=== PATIENT | male | born 1965 | race Caucasian/White ===

== ENCOUNTER 2018-01-27 16:47 | Emergency (ER) | payer OTHER ==
--- NOTE | 2018-01-27 17:51 | EDPHYS ---
Physician Documentation [facility] Name: Ankit Reyes Jr Age: 52 yrs Sex: Male : 1965 Arrival Date: 01/27/2018 Time: 16:49 Bed 14 Private MD: Alex Frankel HPI: 01/27 17:28 This 52 yrs old Male presents to ER via Ambulatory with complaints of cp BLISTERS. 17:28 The patient's rash thought to be caused by an unknown cause. The rash is located on the cp right hand and left hand. Historical: - Allergies: 17:00 No Known Allergies; hb - Home Meds: 17:00 Lisinopril Oral [Active]; hb - PMHx: 17:00 Hyperlipidemia; Hypertension; hb - PSHx: 17:00 ear surgery when young; hb - Immunization history:: Adult Immunizations up to date. - Social history:: Smoking status: Patient uses tobacco products, smokes one pack cigarettes per day. - Ebola Screening: : No symptoms or risks identified at this time. ROS: 17:30 Constitutional: Negative for body aches, chills, fever, poor PO intake. cp 17:30 Eyes: Negative for injury, pain, redness, and discharge. cp 17:30 Skin: Positive for pustules, rash, of the right hand and left hand. 17:30 All other systems are negative. Exam: 17:38 Constitutional: The patient appears in no acute distress, alert, awake, non-toxic, well cp developed, well nourished. 17:38 Head/Face: Normocephalic, atraumatic. cp 17:38 Eyes: Periorbital structures: appear normal, Conjunctiva: normal, no exudate, no injection, Lids and lashes: appear normal, bilaterally. 17:38 ENT: External ear(s): are unremarkable, Nose: is normal, Mouth: Lips: moist, Oral mucosa: pink and intact, moist, Posterior pharynx: is normal, airway is patent, no erythema, no exudate, Voice: is normal. 17:38 Neck: ROM/movement: is normal, is supple, without pain, no range of motions limitations, no nuchal rigidity. 17:38 Chest/axilla: Inspection: normal. 17:38 Cardiovascular: Rate: normal, Rhythm: regular, Pulses: Pulses are 2+ in right radial artery and left radial artery. 17:38 Respiratory: the patient does not display signs of respiratory distress, Respirations: normal, no use of accessory muscles, no retractions, no splinting, no tachypnea. 17:38 Abdomen/GI: Exam negative for discomfort, distension, guarding, Inspection: abdomen appears normal. 17:38 Skin: rash can be described as bullous, mild skin ulcerations with mild erythema, on the right hand and left hand. Vital Signs: 16:59 BP 131 / 91; Pulse 88; Resp 16; Temp 97.4; Pulse Ox 100% on R/A; Weight 70.31 kg; hb Height 5 ft. 8 in. (172.72 cm); Pain 2/10; 19:05 BP 127 / 90; Pulse 92; Resp 18; Pulse Ox 100% ; aj1 16:59 Body Mass Index 23.57 (70.31 kg, 172.72 cm) hb MDM: 17:14 Patient medically screened. cp 17:40 Differential diagnosis: allergic reaction, dermatitis, cellulitis, abscess. cp 17:47 Data reviewed: vital signs, nurses notes. cp 17:48 Counseling: I had a detailed discussion with the patient and/or guardian regarding: the cp historical points, exam findings, and any diagnostic results supporting the discharge/admit diagnosis, the need for outpatient follow up, a ob gyn, to return to the emergency department if symptoms worsen or persist or if there are any questions or concerns that arise at home. 01/27 17:31 Order name: Wound Culture: either hand cp Administered Medications: No medications were administered Disposition: 01/28 09:07 Co-signature as Attending Physician, Alex Lynch MD I agree with the assessment and dimitris plan of care. Disposition: 01/27/18 17:49 Discharged to Home. Impression: Dermatitis, unspecified - Bilateral Hands. - Condition is Stable. - Discharge Instructions: Hand Dermatitis. - Prescriptions for Triamcinolone Acetonide 0.5 % Topical Cream - apply 1 application by TOPICAL route 2 times per day As needed apply as directed to bilateral hands until clear; 1 tube. Bactrim DS 800- 160 mg Oral Tablet - take 1 tablet by ORAL route every 12 hours for 10 days; 20 tablet. - Medication Reconciliation Form, Thank You Letter, Antibiotic Education, Prescription Opioid Use form. - Follow up: Private Physician; When: 5 - 6 days; Reason: Recheck today's complaints. - Problem is new. - Symptoms are unchanged. Signatures: Dispatcher [employer] Claire Mratini RN RN aj1 Alex Lynch MD MD cha Page, Corey, PA PA cp Noy Elizabeth RN RN Corrections: (The following items were deleted from the chart) 01/27 19:06 17:49 01/27/2018 17:49 Discharged to Home. Impression: Dermatitis, unspecified - aj1 Bilateral Hands. Condition is Stable. Forms are Medication Reconciliation Form, Thank You Letter, Antibiotic Education, Prescription Opioid Use. Follow up: Private Physician; When: 5 - 6 days; Reason: Recheck today's complaints. Problem is new. Symptoms are unchanged. cp
--- NOTE | 2018-01-27 17:51 | ER ---
Nurse's Notes [facility] Name: Ankit Reyes Jr Age: 52 yrs Sex: Male : 1965 Arrival Date: 01/27/2018 Time: 16:49 Bed 14 Private MD: Diagnosis: Dermatitis, unspecified-Bilateral Hands Presentation: 01/27 16:59 Presenting complaint: Patient states: Itchy blisters to bilateral hands x 2 weeks. hb Transition of care: patient was not received from another setting of care. Onset of symptoms is unknown. Risk Assessment: Do you want to hurt yourself or someone else? Patient reports no desire to harm self or others. Initial Sepsis Screen: Does the patient meet any 2 criteria? No. Patient's initial sepsis screen is negative. Does the patient have a suspected source of infection? No. Patient's initial sepsis screen is negative. Care prior to arrival: None. 16:59 Method Of Arrival: Ambulatory 16:59 Acuity: BRITTON 4 hb Historical: - Allergies: 17:00 No Known Allergies; hb - Home Meds: 17:00 Lisinopril Oral [Active]; hb - PMHx: 17:00 Hyperlipidemia; Hypertension; hb - PSHx: 17:00 ear surgery when young; hb - Immunization history:: Adult Immunizations up to date. - Social history:: Smoking status: Patient uses tobacco products, smokes one pack cigarettes per day. - Ebola Screening: : No symptoms or risks identified at this time. Screenin:07 Abuse screen: Denies threats or abuse. Denies injuries from another. Nutritional aj1 screening: No deficits noted. Tuberculosis screening: No symptoms or risk factors identified. 19:04 Fall Risk None identified. aj1 Assessment: 17:07 General: Appears in no apparent distress. comfortable, Behavior is calm, cooperative, aj1 appropriate for age. Pain: Complains of pain in right hand and left hand. Neuro: Level of Consciousness is awake, alert, obeys commands, Oriented to person, place, time, situation. Cardiovascular: Patient's skin is warm and dry. Respiratory: Airway is patent Respiratory effort is even, unlabored, Respiratory pattern is regular, symmetrical. GI: No signs and/or symptoms were reported involving the gastrointestinal system. : No signs and/or symptoms were reported regarding the genitourinary system. EENT: No signs and/or symptoms were reported regarding the EENT system. Derm: blistered noted to bilateral hands, patient also has multiple infected areas where he says that he popped the blisters. Musculoskeletal: No signs and/or symptoms reported regarding the musculoskeletal system. Circulation, motion, and sensation intact. 18:00 Reassessment: Patient appears in no apparent distress at this time. No changes from aj1 previously documented assessment. Patient and/or family updated on plan of care and expected duration. Pain level reassessed. Patient is alert, oriented x 3, equal unlabored respirations, skin warm/dry/pink. 19:03 Reassessment: Patient appears in no apparent distress at this time. No changes from aj1 previously documented assessment. Patient and/or family updated on plan of care and expected duration. Pain level reassessed. Patient is alert, oriented x 3, equal unlabored respirations, skin warm/dry/pink. Vital Signs: 16:59 BP 131 / 91; Pulse 88; Resp 16; Temp 97.4; Pulse Ox 100% on R/A; Weight 70.31 kg; hb Height 5 ft. 8 in. (172.72 cm); Pain 2/10; 19:05 BP 127 / 90; Pulse 92; Resp 18; Pulse Ox 100% ; aj1 16:59 Body Mass Index 23.57 (70.31 kg, 172.72 cm) hb ED Course: 16:49 Patient arrived in ED. rg4 16:59 Triage completed. hb 17:00 Arm band placed on left wrist. hb 17:07 Claire Trinh, RN is Primary Nurse. aj1 17:07 Patient has correct armband on for positive identification. Placed in gown. Bed in low aj1 position. Call light in reach. 17:07 No provider procedures requiring assistance completed. aj1 17:14 Alex Bates PA is PHCP. cp 17:14 Alex Lynch MD is Attending Physician. cp 18:35 Wound Culture: either hand Sent. ag 18:35 Wound culture swab sent to lab. ag 19:04 Patient did not have IV access during this emergency room visit. aj1 Administered Medications: No medications were administered Outcome: 17:49 Discharge ordered by MD. cp 19:05 Discharged to home ambulatory. aj1 19:05 Condition: good 19:05 Discharge instructions given to patient, Instructed on discharge instructions, follow up and referral plans. medication usage, Demonstrated understanding of instructions, follow-up care, medications, Prescriptions given X 2. 19:06 Patient left the ED. aj1 Addendum: 01/31/2018 07:16 Addendum: Culture Results: Positive wound culture. No further action required. Bacteria i w sensitive to prescribed antibiotic. Signatures: Claire Trinh, RN RN aj1 Abby Arteaga RN RN Annemarie Truong Corey, PA PA cp Baxter, Heather, RN RN Loulou Muro 4
== END 2018-01-27 19:06 | disposition home or self-care (01) ==
LOC: ER 16:47
DX: L30.9 Dermatitis, unspecified (principal); I10 Essential (primary) hypertension; E78.5 Hyperlipidemia, unspecified; F17.210 Nicotine dependence, cigarettes, uncomplicated
CPT/HCPCS: 87070; 87077; 87186; 87205; 99283

== ENCOUNTER 2019-03-29 12:47 | Inpatient (IN) | payer OTHER ==
--- OUTSIDE RECORDS SUMMARY | 2019-03-29 12:50 | XMS REPORT ---
:1965 [facility] Address [address] [place] [address] Dr. Trinh [address] [place] [id number] Care Team Providers Name Role Phone Unavailable Unavailable Unavailable Problems This patient has no known problems. Allergies, Adverse Reactions, Alerts This patient has no known allergies or adverse reactions. Medications This patient has no known medications.
[2019-03-29] MEDS ORDERED: NA CHLORIDE 0.9% 2,000 ML ONE (13:51)
--- NOTE | 2019-03-29 15:07 | RAD REPORT ---
EXAM DESCRIPTION: RAD - Chest Single View - 03/29/2019 2:45 pm CLINICAL HISTORY: COUGH Chest pain. COMPARISON: Chest Single View dated 08/09/2017 FINDINGS: Portable technique limits examination quality. The lungs are grossly clear. The heart is normal in size. No displaced fractures. IMPRESSION: No acute intrathoracic process suspected.
[2019-03-29 15:12] LABS: Absolute Lymphocytes (CBC) 2.7 K/uL (0.7-4.9); Basophils % 0.3 % (0-1.3); Hematocrit 39.9 % (39.6-49.0); Lymphocytes % 29.7 % (15.3-44.8); MPV 11.1 fL (7.6-11.3)
[2019-03-29 15:20] LABS: ALT/SGPT 30 U/L (12-78); AST/SGOT 26 U/L (15-37); Albumin 3.9 g/dL (3.4-5.0); Alkaline Phosphatase 71 U/L (45-117); BUN Blood Urea Nitrogen 63 mg/dL (7-18); Bicarbonate 19 mmol/L (21-32); Bilirubin Direct 0.1 mg/dL (0-0.2); Bilirubin Total 0.4 mg/dL (0.2-1.0); CKMB Creatine Kinase MB 1.7 ng/mL (0.3-3.6); Creatine Phosphokinase 321 U/L (39-308); Glucose Level 94 mg/dL (74-106); Magnesium 2.5 mg/dL (1.8-2.4); NT PRO-BNP 487 pg/mL (<125); Potassium 3.8 mmol/L (3.5-5.1); Protein, Total 8.5 g/dL (6.4-8.2); Sodium Level 134 mmol/L (136-145); Troponin (Emerg Dept Use Only) < 0.02 ng/mL (0.0-0.045)
[2019-03-29 15:30] LABS: Protime INR 0.96
--- NOTE | 2019-03-29 15:43 | ER ---
Nurse's Notes [facility] Name: Ankit Reyes Jr Age: 53 yrs Sex: Male : 1965 Arrival Date: 03/29/2019 Time: 12:48 Bed 20 Private MD: Diagnosis: Acute kidney failure-dehydration, HUNTER inhibitors;Hypotension;Weakness Presentation: 03/29 13:10 Presenting complaint: Patient states: has not been felling like his normal self for iw past 2-3 days, took his BP at home and was low 70/58, has had mild dizziness, works outside daily and got overheated yesterday, vomited twice, denies cough/fever. Transition of care: patient was not received from another setting of care. Onset of symptoms was March 29, 2019. Risk Assessment: Do you want to hurt yourself or someone else? Patient reports no desire to harm self or others. Initial Sepsis Screen: Does the patient meet any 2 criteria? No. Patient's initial sepsis screen is negative. Does the patient have a suspected source of infection? No. Patient's initial sepsis screen is negative. Care prior to arrival: None. 13:10 Method Of Arrival: Ambulatory iw 13:10 Acuity: BRITTON 3 iw Historical: - Allergies: 13:15 No Known Allergies; iw - Home Meds: 13:14 lisinopril 12.5 mg Oral 2 tabs once daily [Active]; iw - PMHx: 13:14 Hyperlipidemia; Hypertension; iw - PSHx: 13:14 ear surgery when young; iw - Immunization history:: Adult Immunizations up to date. - Social history:: Smoking status: Patient/guardian denies using. - Ebola Screening: : Patient negative for fever greater than or equal to 101.5 degrees Fahrenheit, and additional compatible Ebola Virus Disease symptoms Patient denies exposure to infectious person. - Family history:: not pertinent. Screenin:30 Abuse screen: Denies threats or abuse. Nutritional screening: No deficits noted. em Tuberculosis screening: No symptoms or risk factors identified. Fall Risk None identified. Assessment: 13:30 General: Appears in no apparent distress. comfortable, Behavior is calm, cooperative, em Denies fever. Pain: Denies pain. Neuro: Level of Consciousness is awake, alert, obeys commands, Denies weakness dizziness. Cardiovascular: Capillary refill < 3 seconds Patient's skin is warm and dry. Respiratory: Airway is patent Respiratory effort is even, unlabored, Respiratory pattern is regular, symmetrical. GI: Abdomen is flat, Patient currently denies nausea, vomiting. Derm: Skin is intact, is healthy with good turgor, Skin is pink, warm \T\ dry. Musculoskeletal: Capillary refill < 3 seconds, Range of motion: intact in all extremities. 14:30 Reassessment: Patient appears in no apparent distress at this time. Patient and/or em family updated on plan of care and expected duration. Pain level reassessed. Patient is alert, oriented x 3, equal unlabored respirations, skin warm/dry/pink. Patient denies pain at this time. 15:45 Reassessment: Patient appears in no apparent distress at this time. Patient and/or em family updated on plan of care and expected duration. Pain level reassessed. Patient is alert, oriented x 3, equal unlabored respirations, skin warm/dry/pink. 17:16 Reassessment: Patient appears in no apparent distress at this time. Patient and/or em family updated on plan of care and expected duration. Pain level reassessed. Patient is alert, oriented x 3, equal unlabored respirations, skin warm/dry/pink. Patient denies pain at this time. Vital Signs: 13:15 BP 105 / 71; Pulse 88; Resp 16; Temp 98.1(TE); Pulse Ox 98% on R/A; Weight 79.38 kg; iw Height 5 ft. 9 in. (175.26 cm); Pain 0/10; 14:15 BP 93 / 66 LA (/reg); Pulse 60; Resp 14; Temp 98.3(T); Pain 0/10; tt1 13:15 Body Mass Index 25.84 (79.38 kg, 175.26 cm) iw ED Course: 12:48 Patient arrived in ED. as 13:07 Alex Lynch MD is Attending Physician. [facility] 13:07 Marquez Hall LVN is Primary Nurse. em 13:13 Triage completed. iw 13:15 Arm band placed on. iw 13:30 Patient has correct armband on for positive identification. Placed in gown. Bed in low em position. Call light in reach. Pulse ox on. NIBP on. 14:20 Initial lab(s) drawn, by mi, sent to lab. Inserted saline lock: 20 gauge in right em antecubital area, using aseptic technique. Blood collected. 14:47 XRAY Chest (1 view) In Process Unspecified. EDMS 15:22 Notified ED physician of a critical lab result(s). creatinine 8.45. em 15:42 Kavita Almaguer MD is Hospitalizing Provider. [facility] 15:48 Tori Quintero MD is Hospitalizing Provider. dimitris 16:04 CT Stone Protocol In Process Unspecified. EDMS 16:05 Urine collected: clean catch specimen, tea colored, Amount Voided: 300mL. em 18:29 No provider procedures requiring assistance completed. Patient admitted, IV remains in iw place. Administered Medications: 14:20 Drug: NS 0.9% 1000 ml Route: IV; Rate: 1 bolus; Site: right antecubital; em 16:01 Follow up: IV Status: Completed infusion; IV Intake: 1000ml em 14:43 Drug: NS 0.9% 1000 ml Route: IV; Rate: 1 bolus; Site: right antecubital; em 16:02 Follow up: IV Status: Completed infusion; IV Intake: 1000ml em 16:31 Drug: NS 0.9% 1000 ml Route: IV; Rate: 125 ml/hr; Site: right antecubital; em 18:00 Follow up: IV Status: Infusion continued upon admission; IV Intake: 200ml em Intake: 16:01 IV: 1000ml; Total: 1000ml. em 16:02 IV: 1000ml; Total: 2000ml. em 18:00 IV: 200ml; Total: 2200ml. em Outcome: 15:43 Decision to Hospitalize by Provider. dimitris 18:29 Admitted to Tele accompanied by tech, via wheelchair, room 406, with chart, Report iw called to JAYME Barnes 18:29 Condition: good 18:29 Instructed on the need for admit. 18:30 Patient left the ED. iw Signatures: Dispatcher [employer] Alex Wolfe MD MD cha Munoz, Edgar, [employer] em Linda Joyce Irene, JAYME RN Coty Chua tt1
--- NOTE | 2019-03-29 15:44 | EDPHYS ---
Physician Documentation [facility] Name: Ankit Reyes Jr Age: 53 yrs Sex: Male : 1965 Arrival Date: 03/29/2019 Time: 12:48 Bed 20 Private MD: ED Physician Alex Lynch HPI: 03/29 13:48 This 53 yrs old Male presents to ER via Ambulatory with complaints of Blood dimitris Pressure Problem - Low, Doesn't Feel Right. 13:48 on bp meds, works in heat. Onset: The symptoms/episode began/occurred 2 day(s) ago. dimitris Severity of symptoms: At their worst the symptoms were moderate in the emergency department the symptoms are unchanged. The patient has not experienced similar symptoms in the past. Historical: - Allergies: 13:15 No Known Allergies; iw - Home Meds: 13:14 lisinopril 12.5 mg Oral 2 tabs once daily [Active]; iw - PMHx: 13:14 Hyperlipidemia; Hypertension; iw - PSHx: 13:14 ear surgery when young; iw - Immunization history:: Adult Immunizations up to date. - Social history:: Smoking status: Patient/guardian denies using. - Ebola Screening: : Patient negative for fever greater than or equal to 101.5 degrees Fahrenheit, and additional compatible Ebola Virus Disease symptoms Patient denies exposure to infectious person. - Family history:: not pertinent. ROS: 13:48 Constitutional: Negative for fever, chills, and weight loss, Eyes: Negative for injury, dimitris pain, redness, and discharge, ENT: Negative for injury, pain, and discharge, Neck: Negative for injury, pain, and swelling, Cardiovascular: Negative for chest pain, palpitations, and edema, Respiratory: Negative for shortness of breath, cough, wheezing, and pleuritic chest pain, Abdomen/GI: Negative for abdominal pain, nausea, vomiting, diarrhea, and constipation, Back: Negative for injury and pain, : Negative for injury, bleeding, discharge, and swelling, MS/Extremity: Negative for injury and deformity, Skin: Negative for injury, rash, and discoloration, Psych: Negative for depression, anxiety, suicide ideation, homicidal ideation, and hallucinations, Allergy/Immunology: Negative for hives, rash, and allergies, Endocrine: Negative for neck swelling, polydipsia, polyuria, polyphagia, and marked weight changes, Hematologic/Lymphatic: Negative for swollen nodes, abnormal bleeding, and unusual bruising. 13:48 Neuro: Positive for dizziness, weakness. Exam: 13:48 Constitutional: This is a well developed, well nourished patient who is awake, alert, dimitris and in no acute distress. Head/Face: Normocephalic, atraumatic. Eyes: Pupils equal round and reactive to light, extra-ocular motions intact. Lids and lashes normal. Conjunctiva and sclera are non-icteric and not injected. Cornea within normal limits. Periorbital areas with no swelling, redness, or edema. ENT: Nares patent. No nasal discharge, no septal abnormalities noted. Tympanic membranes are normal and external auditory canals are clear. Oropharynx with no redness, swelling, or masses, exudates, or evidence of obstruction, uvula midline. Mucous membranes moist. Neck: Trachea midline, no thyromegaly or masses palpated, and no cervical lymphadenopathy. Supple, full range of motion without nuchal rigidity, or vertebral point tenderness. No Meningismus. Chest/axilla: Normal chest wall appearance and motion. Nontender with no deformity. No lesions are appreciated. Cardiovascular: Regular rate and rhythm with a normal S1 and S2. No gallops, murmurs, or rubs. Normal PMI, no JVD. No pulse deficits. Respiratory: Lungs have equal breath sounds bilaterally, clear to auscultation and percussion. No rales, rhonchi or wheezes noted. No increased work of breathing, no retractions or nasal flaring. Abdomen/GI: Soft, non-tender, with normal bowel sounds. No distension or tympany. No guarding or rebound. No evidence of tenderness throughout. Back: No spinal tenderness. No costovertebral tenderness. Full range of motion. Skin: Warm, dry with normal turgor. Normal color with no rashes, no lesions, and no evidence of cellulitis. MS/ Extremity: Pulses equal, no cyanosis. Neurovascular intact. Full, normal range of motion. Neuro: Awake and alert, GCS 15, oriented to person, place, time, and situation. Cranial nerves II-XII grossly intact. Motor strength 5/5 in all extremities. Sensory grossly intact. Cerebellar exam normal. Normal gait. Psych: Awake, alert, with orientation to person, place and time. Behavior, mood, and affect are within normal limits. Vital Signs: 13:15 BP 105 / 71; Pulse 88; Resp 16; Temp 98.1(TE); Pulse Ox 98% on R/A; Weight 79.38 kg; iw Height 5 ft. 9 in. (175.26 cm); Pain 0/10; 14:15 BP 93 / 66 LA (/reg); Pulse 60; Resp 14; Temp 98.3(T); Pain 0/10; tt1 13:15 Body Mass Index 25.84 (79.38 kg, 175.26 cm) iw MDM: 13:07 Patient medically screened. [facility] [place] 13:50 Data reviewed: vital signs, nurses notes, lab test result(s), EKG, radiologic studies, [facility] plain films. 03/29 13:44 Order name: Basic Metabolic Panel [facility] [place] 03/29 13:44 Order name: CBC with Diff [facility] 03/29 13:44 Order name: LFT's [facility] 03/29 13:44 Order name: Magnesium; Complete Time: 15:37 [facility] 03/29 13:44 Order name: NT PRO-BNP; Complete Time: 15:37 [facility] [place] 03/29 13:44 Order name: PT-INR; Complete Time: 15:37 [facility] [place] 03/29 13:44 Order name: Troponin (emerg Dept Use Only); Complete Time: 15:37 [facility] [place] 03/29 13:44 Order name: Urine Culture [facility] [place] 03/29 13:44 Order name: CK; Complete Time: 15:37 [facility] [place] 03/29 13:44 Order name: Ckmb; Complete Time: 15:37 [facility] [place] 03/29 13:46 Order name: Basic Metabolic Panel; Complete Time: 15:37 [facility] 03/29 13:46 Order name: CBC with Automated Diff; Complete Time: 15:37 [facility] 03/29 13:46 Order name: Liver (Hepatic) Function; Complete Time: 15:37 [facility] 03/29 16:04 Order name: Urine Dipstick--Ancillary (enter results) [facility] 03/29 13:44 Order name: XRAY Chest (1 view); Complete Time: 15:37 [facility] 03/29 15:38 Order name: CT Stone Protocol; Complete Time: 17:14 [facility] 03/29 16:34 Order name: Comprehensive Metabolic Panel [facility] 03/29 16:34 Order name: Comprehensive Metabolic Panel [facility] 03/29 16:34 Order name: Comprehensive Metabolic Panel [facility] 03/29 16:34 Order name: Comprehensive Metabolic Panel [facility] 03/29 16:34 Order name: Creatine Phosphokinase [facility] 03/29 16:34 Order name: Creatine Phosphokinase [facility] 03/29 16:34 Order name: Creatine Phosphokinase [facility] 03/29 16:34 Order name: Creatine Phosphokinase [facility] 03/29 16:34 Order name: Magnesium [facility] 03/29 16:34 Order name: Magnesium [facility] 03/29 16:34 Order name: Magnesium [facility] 03/29 16:34 Order name: Phosphorus [facility] 03/29 13:44 Order name: EKG; Complete Time: 13:46 [facility] 03/29 13:44 Order name: Cardiac monitoring; Complete Time: 13:47 [facility] 03/29 13:44 Order name: EKG - Nurse/Tech; Complete Time: 13:58 [facility] 03/29 13:44 Order name: IV Saline Lock; Complete Time: 13:47 [facility] 03/29 13:44 Order name: Labs collected and sent; Complete Time: 13:47 [facility] 03/29 13:44 Order name: O2 Per Protocol; Complete Time: 13:46 [facility] 03/29 13:44 Order name: O2 Sat Monitoring; Complete Time: 13:46 [facility] 03/29 13:44 Order name: Urine Dipstick-Ancillary (obtain specimen); Complete Time: 16:04 [facility] 03/29 16:35 Order name: CONS Physician Consult [facility] 03/29 16:35 Order name: Renal EDND Administered Medications: 14:20 Drug: NS 0.9% 1000 ml Route: IV; Rate: 1 bolus; Site: right antecubital; em 16:01 Follow up: IV Status: Completed infusion; IV Intake: 1000ml em 14:43 Drug: NS 0.9% 1000 ml Route: IV; Rate: 1 bolus; Site: right antecubital; em 16:02 Follow up: IV Status: Completed infusion; IV Intake: 1000ml em 16:31 Drug: NS 0.9% 1000 ml Route: IV; Rate: 125 ml/hr; Site: right antecubital; em 18:00 Follow up: IV Status: Infusion continued upon admission; IV Intake: 200ml em Disposition: 03/29/19 15:43 Hospitalization ordered by Tori Quintero for Inpatient Admission. Preliminary diagnosis are Acute kidney failure - dehydration, HUNTER inhibitors, Hypotension, Weakness. - Bed requested for Telemetry/MedSurg (Inpatient). - Status is Inpatient Admission. iw - Condition is Fair. - Problem is new. - Symptoms have improved. UTI on Admission? No Signatures: Dispatcher [employer] Alex Wolfe MD MD cha Munoz, Marquez, TRAINING AND DEVELOPMENT SPECIALIST TRAINING AND DEVELOPMENT SPECIALIST Abby Addison RN RN Ryan Alexander em1 Corrections: (The following items were deleted from the chart) 15:45 15:43 Hospitalization Ordered by Kavita Almaguer MD for Inpatient Admission. Preliminary dimitris diagnosis is Acute kidney failure; Hypotension; Weakness. Bed requested for Telemetry/MedSurg (Inpatient). Status is Inpatient Admission. Condition is Fair. Problem is new. Symptoms have improved. UTI on Admission? No. dimitris 15:48 15:45 03/29/2019 15:43 Hospitalization Ordered by Kavita Almaguer MD for Inpatient dimitris Admission. Preliminary diagnosis is Acute kidney failure - dehydration, HUNTER inhibitors; Hypotension; Weakness. Bed requested for Telemetry/MedSurg (Inpatient). Status is Inpatient Admission. Condition is Fair. Problem is new. Symptoms have improved. UTI on Admission? No. dimitris 17:19 15:48 03/29/2019 15:43 Hospitalization Ordered by Tori Quintero MD for Inpatient em1 Admission. Preliminary diagnosis is Acute kidney failure - dehydration, HUNTER inhibitors; Hypotension; Weakness. Bed requested for Telemetry/MedSurg (Inpatient). Status is Inpatient Admission. Condition is Fair. Problem is new. Symptoms have improved. UTI on Admission? No. dimitris 18:30 17:19 03/29/2019 15:43 Hospitalization Ordered by Tori Quintero MD for Inpatient iw Admission. Preliminary diagnosis is Acute kidney failure - dehydration, HUNTER inhibitors; Hypotension; Weakness. Bed requested for Telemetry/MedSurg (Inpatient). Status is Inpatient Admission. Condition is Fair. Problem is new. Symptoms have improved. UTI on Admission? No. em1
--- NOTE | 2019-03-29 16:20 | RAD REPORT ---
EXAM DESCRIPTION: CT - Stone Protocol - 03/29/2019 4:01 pm CLINICAL HISTORY: Flank pain. ABD PAIN COMPARISON: No comparisonsNo comparisons TECHNIQUE: Axial images were obtained without oral or IV contrast. Lack of contrast limits solid org an and vascular assessment. The [id number] spans the entirety of the system partially obscuring uppermost abdomen and lung bases. Coronal reformatted images were obtained and reviewed. All CT scans are performed using dose optimization technique as appropriate and may include automated exposure control or mA/KV adjustment according to patient size. FINDINGS: The lower lung mckeon are clear. Imaged portions of the liver and spleen show no suspicious findings on non-contrast imaging. The panc reas and adrenal glands are normal. No pathologic lymphadenopathy in the abdomen or pelvis. No urinary tract stones or obstructive uropathy. No bowel obstruction, free air, free fluid or abscess. Normal appendix noted. No significant bony abnormality. IMPRESSION: No urinary tract stones or obstructive uropathy.
[2019-03-29] MEDS ORDERED: ONDANSETRON 4 MG/2 ML VIAL IV PRN (16:26)
[2019-03-29] MEDS ORDERED: ACETAMINOPHEN 500 MG TAB PO PRN (16:26)
[2019-03-29] MEDS ORDERED: NA CHLORIDE 0.9% 1,000 ML ONE (16:28)
[2019-03-29] MEDS: D5W 1,000 ML with NA BICARB 8.4% 100 MEQ IV SCH ×2 (17:00)
[2019-03-29 20:27] LABS: Urine Blood TRACE (NEG); Urine Glucose NEGATIVE (NEG); Urine Protein 1+ (NEG)
[2019-03-29] MEDS: ENOXAPARIN 30 MG/0.3 ML SQ SCH (20:42)
[2019-03-29 23:44] VITALS: BMI 24.3
[2019-03-30] MEDS: D5W 1,000 ML with NA BICARB 8.4% 100 MEQ IV SCH ×8 (01:11→21:38)
--- NOTE | 2019-03-30 01:47 | HP ---
Date of Admission: 03/29/2019 Primary Care Physician: At [facility]. Consultants: Dr. Urena with Nephrology. Chief Complaint: Nausea, vomiting, generalized malaise, low blood pressure. History Of Present Illness: The patient is a 53-year-old male with past medical history of hypertension, who follows at the [facility], was recently told to double up his medication. He takes lisinopril/HCTZ combo at 40 /25 mg total due to elevated and uncontrolled blood pressure. The patient has been having generalized malaise with weakness and nausea and vomiting as well as some dehydration. The patient does work outside building houses in the heat. The patient states he tries to stay hydrated. The patient's symptoms are constant, moderate, progressively worsening. He denies any fevers, chills, or ill contacts. No chest pain or shortness of breath. The patient's blood pressure at home was low systolic 70s; therefore, patient came into the ER for further evaluation. Upon arrival, his vital signs showed a blood pressure of 105/71 with a pulse of 88. His workup revealed a creatinine of 8.45 and at baseline his creatinine is normal. He did have some mild electrolytes, low sodium, and elevated magnesium. Potassium was normal. His CK level was elevated at 321. The patient was given 2 L of normal saline bolus and then referred for admission. When seen in the ER, he was awake, alert, oriented x3, in some mild distress. Past Medical History: Hypertension. Past Surgical History: None. Allergies: NO KNOWN DRUG ALLERGIES. Medications: Lisinopril/HCTZ, currently taking 40/25 mg daily. Social History: The patient smokes a pack every day and a half. Does drink alcohol occasionally. No illicit drug use. Works in construction, building houses. Family History: The father had a heart attack at the age of 80. Review of Systems: 11-point systems reviewed, negative except as per HPI. Physical Examination: Vital Signs: Blood pressure 105/71, pulse 88, respirations 15, temperature 98.1 , O2 98% on room air. General: Awake, alert, oriented x3, in some mild distress, ill-appearing male. HEENT: Normocephalic, atraumatic. PERRLA. EOMI. Dry mucous membranes. Oropharynx is clear. Poor dentition. Conjunctivae anicteric. Neck: Supple. No JVD. Trachea midline. CV: S1, S2. Regular rate and rhythm. Peripheral pulses present. Respiratory: Moving air well bilaterally. No wheezing or stridor. No use of accessory muscles. Gastrointestinal: Abdomen is soft, nontender, nondistended. Positive bowel sounds. No guarding or rigidity. Extremities: No clubbing, cyanosis, or edema. No calf tenderness. Neuro: Cranial nerves 2 through 12 intact grossly. No focal neurological deficit. Speech is normal. Skin: No rashes. Normal skin turgor. The patient does have some abrasions on his lower extremities, which are well-healing. Psych: Mood is okay. Affect is full. Insight and judgment are good. Laboratory Data: WBC 9.2, H and H 13.6 and 39.9, platelets 175, neutrophils 57% , INR 0.96. Sodium 134, potassium 3.8, chloride 101, CO2 of 19, BUN 63, creatinine 8.45, glucose 94, calcium 8.7, magnesium 2.5. CK level is 321. Troponin less than 0.02. UA is pending. Imaging Studies: CT stone protocol shows no urinary tract stones or obstructive uropathy. Chest x-ray shows no acute intrathoracic process. Assessment And Plan: A 53-year-old male with: 1. Acute kidney injury. Creatinine is now 8.45, baseline from 2018 was normal , maybe secondary to acute tubular necrosis versus prerenal azotemia and rhabdomyolysis. We will consult Nephrology. The patient does have some mild electrolyte abnormalities including hyponatremia and hypermagnesemia. We will continue to monitor closely. We will start on D5W with bicarb and avoid NSAIDs. 2. Acute dehydration. We will continue with IV fluids, likely secondary to being outside working in the heat. 3. Acute rhabdomyolysis, nontraumatic. CK level is mildly elevated at 321. We will continue with IV fluids and check serial CK levels. The patient does have acute kidney injury. 4. Acute hypotension. The patient's blood pressure is 70s systolic at home, currently in the 90s systolic. We will continue with IV fluid hydration, likely related to his blood pressure medications as well as dehydration. We will monitor closely. 5. Hypermagnesemia, likely secondary to acute kidney injury. 6. Hyponatremia. 7. DVT prophylaxis with Lovenox, renally dosed. [facility], length of stay greater than 2 midnights. ARIA Voice ID: [id number]
[2019-03-30 05:58] LABS: Absolute Lymphocytes (CBC) 2.6 K/uL (0.7-4.9); Basophils % 0.3 % (0-1.3); Hematocrit 34.6 % (39.6-49.0); RBC Red Blood Cell Count 3.33 M/uL (4.33-5.43)
[2019-03-30 06:17] LABS: Albumin 3.2 g/dL (3.4-5.0); Bilirubin Total 0.3 mg/dL (0.2-1.0); Magnesium 1.8 mg/dL (1.8-2.4); Phosphorus 4.8 mg/dL (2.5-4.9); Potassium 3.9 mmol/L (3.5-5.1)
--- NOTE | 2019-03-30 10:24 | EKG ---
Test Date: 2019-03-29 Test Time: 13:54:42 Pantograph Ii Engraver: TIFFANIE MEASUREMENT RESULTS: Intervals: Rate: 77 MN: 146 QRSD: 106 QT: 370 QTc: 418 [place]: P: 64 MN: 146 QRS: 62 T: 31 INTERPRETIVE STATEMENTS: Normal sinus rhythm Normal ECG No previous ECG available for comparison Electronically Signed On 03-30-19 10:23:17 CDT by Elie Mujica
[2019-03-30] MEDS: MUPIROCIN 2% OINT 22GM TUBE TOP SCH ×2 (11:04→20:08)
[2019-03-30 14:00] VITALS: O2SAT 98
--- NOTE | 2019-03-30 15:16 | PN ---
Date of Progress Note: 03/30/2019 Subjective: Patient is seen and examined. Chart reviewed and case discussed with RN and Dr. Urena. The patient is doing significantly better. Did complain of laceration that he obtained at work on hi s left hand. Medications: List reviewed. Physical Examination: Vital Signs: Temperature 98.1, heart rate 63, blood pressure 114/68, respirations 16, O2 98% on room air. General: Awake, alert, oriented x3, not in any acute distress. CV: S1, S2. Regular rate and rhythm. Peripheral pulses present. Respiratory: Moving air well bilaterally. No wheezing or stridor. Gastrointestinal: Abdomen is soft, nontender, nondistended. Positive bowel sounds. Extremities: No clubbing, cyanosis, or edema. Neurologic: Nonfocal. Cranial nerves 2 through 12 intact grossly. No focal neurological deficit. Skin: The patient has multiple abrasions, specifically the one the left hand is approximately 4 cm. No acute signs of infection. No surrounding erythema or drainage. PSYCH: Mood is okay. Affect is full. Insight and judgment are good. Laboratory Data: Sodium 141, potassium 3.9, chloride 107, CO2 of 25, BUN 52, creatinine 3.22, glucos e 101, calcium 8, phosphorus 4.8, magnesium 1.8. WBCs 6.8, H and H of 12.5 and 34.3, platelets 142. Urine culture, no growth to date. Assessment And Plan: A 53-year-old male with: 1.Acute kidney injury. Creatinine improving, down to 3 from 8 ,likely secondary to acute tubular ne crosis versus prerenal azotemia and rhabdomyolysis. Awaiting Nephrology evaluation. We will continu e to monitor. Electrolyte abnormalities have improved. We will continue with D5W with bicarb. Avoi d NSAIDs. 2.Acute dehydration improved with IV fluids. We will encourage p.o. intake. 3.Acute rhabdomyolysis, nontraumatic. CK level has normalized. Continue IV fluids. 4.Acute hypotension. Blood pressure now in the 114 to 105. We will hold lisinopril/HCTZ for now du e to acute kidney injury. 5.Hypomagnesemia, corrected. 6.Hyponatremia, corrected. 7.Deep venous thrombosis prophylaxis with Lovenox, renally dosed. 8.We will likely discharge in the next 24 hours if continues to improve. SA/MODL Voice ID: [id number] Report ID: [id number]
[2019-03-30] MEDS: ENOXAPARIN 30 MG/0.3 ML SQ SCH (17:38)
--- NOTE | 2019-03-31 02:24 | CON ---
Date of Consultation: 03/30/2019 Chief Complaint: Acute kidney injury, severe, nonoliguric, associated with prerenal azotemia, trigge red by volume depletion and hypotension. History Of Present Illness: Patient presented to the hospital because of generalized weakness and di zziness, was found to have hypotension. Patient has history of hypertension and was taking lisinopri l and hydrochlorothiazide. Patient developed weakness, malaise, nausea, vomiting, and presented to [facility] for further evaluation. Patient, despite p.o. hydration, did not feel better and decided to come to the hospital. ER showed evaluation with creatinine of 8.45. Blood pressure was 105/75, heart rate 88. CK level was 321, elevated, slightly over the normal limit. Patient received IV normal saline of 2 L bolus for hypotension and volume depletion. Patient, during the ER evaluation, was awake, alert x3, and denied renal colic or hematuria. Past Medical History: Hepatitis C. Patient was treated at [facility] in [place] and is to present for elan. He recently finished treatment with [facility]. Patient also was evaluated for hemochromatosi s related to hepatitis C infection. Patient has history of hypertension, was taking lisinopril and h ydrochlorothiazide. Patient denies history of kidney stone and kidney disease. Denies prostate prob zarina. Review of Systems: Constitutional: Denies fever, chills. Eyes: Denies vision changes. Ears, Nose, Mouth, and Throat: Denies sore throat, earache. Respiratory: Denies PND, orthopnea. Cardiovascular: Denies chest pain, palpitation. GI: Denies nausea, vomiting. : Denies dysuria, hematuria. Musculoskeletal: Denies muscle aches or joint swelling. All other systems reviewed and all are negative. Social History: Smokes half a pack a day. Does not drink alcohol. Denies street drugs. Family History: Coronary artery disease in his father, hypertension. Physical Examination: General: Patient is awake, alert, follows commands. Eyes: Anicteric sclerae. EOMI. Ears, Nose, Mouth, and Throat: Oral mucosa moist. No pallor. Neck: Supple. No JVD. No bruits. Lungs: Clear to auscultation bilaterally. Heart: S1, S2. No pericardial friction rub. Abdomen: Soft, benign, nontender. No rebound. No guarding. Extremities: No edema. No clubbing. No cyanosis. Neurological: Moving extremities. Cranial nerves intact. Psychiatric: Alert, oriented x3. Normal affect. Blood Work: Hemoglobin 13.6, hematocrit 39.9, platelet count 175,000, neutrophils 57%. Potassium 3. 8, chloride 101, CO2 19, BUN 63, creatinine 8.45, glucose 94, calcium 8.7, magnesium 2.5. Troponin l ess than 0.02. Urinalysis showed specific gravity 1.020, large esterase, ketones trace, 1+ protein. CT scan of the abdomen and pelvis without contrast showed no urinary tract stone, no obstructive uro onelia, no bowel obstruction. Findings were evaluated with noncontrast imaging test. Impression And Plan: 1.Acute kidney injury, severe, secondary to prerenal azotemia, renal hypoperfusion, and triggered by hypovolemia and HUNTER inhibitor. Patient is taken off HUNTER inhibitor. Patient will continue IV fluids . Renal function is somewhat improving. 2.Metabolic acidosis, mild. Patient was started on sodium bicarbonate drip and metabolic acidosis i s well compensated. 3.Mild proteinuria. There is no evidence of active urinary sediment. Re-evaluate proteinuria when renal function is at baseline. 4.Hypertension. Patient was taken off HUNTER inhibitor because of acute kidney injury. Monitor blood pressure. Adjust medication. 5.Nausea, vomiting. Workup pending for gastritis and gastroenteritis. 6.Urinalysis did not show active urinary sediment. There is no evidence of nephritis or urinary tra ct infection. YAYO/SAAD Voice ID: [id number] Report ID: [id number]
[2019-03-31 04:17] LABS: Absolute Lymphocytes (CBC) 3.1 K/uL (0.7-4.9); Basophils % 0.5 % (0-1.3); Hematocrit 36.4 % (39.6-49.0); Lymphocytes % 39.3 % (15.3-44.8); MPV 10.7 fL (7.6-11.3); RBC Red Blood Cell Count 3.49 M/uL (4.33-5.43)
[2019-03-31 04:44] LABS: Albumin 3.3 g/dL (3.4-5.0); Bilirubin Total 0.4 mg/dL (0.2-1.0); Phosphorus 2.1 mg/dL (2.5-4.9); Potassium 3.8 mmol/L (3.5-5.1); Protein, Total 7.3 g/dL (6.4-8.2)
[2019-03-31 05:00] LABS: Magnesium 1.4 mg/dL (1.8-2.4)
[2019-03-31 08:53] VITALS: BP 140/76; TEMP 97.9
[2019-03-31] MEDS ORDERED: MAGNESIUM SULFATE 1 gm IVPB 1 GM/100 ML BAG IV ONE (09:00)
[2019-03-31] MEDS: MUPIROCIN 2% OINT 22GM TUBE TOP SCH (09:11)
--- NOTE | 2019-04-01 02:22 | PN ---
Date of Progress Note: 03/31/2019 Chief Complaint: Acute kidney injury, severe, nonoliguric, associated with severe prerenal azotemia triggered by hypovolemia, hypotension, an HUNTER inhibitor effect. Patient presented to the hospital be cause of generalized weakness and dizziness, was found to have hypotension and received IV fluids. P atient was taking lisinopril and hydrochlorothiazide. Patient developed weakness, malaise, nausea an d vomiting. Despite p.o. hydration, he did not feel better and decided to come to the hospital. CK level was 321, elevated, but slightly over the normal limit. Does not correspond with risk of sig nificant rhabdomyolysis. Patient will receive IV saline bolus 2 L for hypotension and volume depleti on. Review of Systems: Denies fever, chills. Physical Examination: Vital Signs: Blood pressure 130/76, heart rate 65, respiratory rate 20, temperature 97.9. Lungs: Clear to ausculation bilaterally. Heart: S1, S2. Abdomen: Soft, benign, nontender. Extremities: Slight edema. Laboratory Data: Hemoglobin 12.8, WBC 7.9, platelet count 157,000. Sodium 142, potassium 3.8, chlor dustin 105, CO2 of 32, BUN 30, creatinine 1.34. On March 29, BUN was 63, creatinine 8.45, magnesium 1. 4, calcium 8.2, phosphorus 2.1. Impression And Plan: 1.Acute on chronic kidney injury secondary to prerenal azotemia due to renal hypoperfusion triggered by hypovolemia and hypotension. Patient will continue p.o. hydration. He completed IV fluids and r esponded with improvement of renal function. 2.Hypomagnesemia. Magnesium replacement was ordered. Patient has is not a candidate for hydrochlor othiazide and he cannot take HUNTER inhibitor because of risk of recurrent acute kidney failure. 3.Patient was instructed to follow up with infectious disease for history of hepatitis C. 4.Patient will have several workup as needed outpatient. Currently, renal function is improving. C ontinue treatment with adequate blood pressure control. Patient can take calcium channel juanita. 5.Patient will monitor blood pressure closely and hold medication if systolic blood pressure is belo w 110. EB/MODL Voice ID: [id number] Report ID: [id number]
--- NOTE | 2019-04-01 08:13 | DS ---
Date of Discharge: 03/31/2019 Consultants: Azalia Sims MD, with nephrology. Admitting Diagnoses: 1.Acute kidney injury. 2.Acute dehydration. 3.Acute rhabdomyolysis, nontraumatic. 4.Acute hypotension. 5.Hypermagnesemia. 6.Hyponatremia. Discharge Diagnoses: 1.Acute kidney injury, likely due to hypoperfusion and prerenal azotemia, resolving. 2.Acute dehydration, resolved. 3.Acute rhabdomyolysis, nontraumatic, resolved. 4.Acute hypotension, resolved. 5.Hypermagnesemia, corrected. 6.Hyponatremia, corrected. Hospital Course: Patient is a 53-year-old male with past medical history of hypertension who was ha ing lisinopril, comes in with nausea, vomiting, and hypotension. The patient was found to be hypoten sive with systolic as low as the 70s at home. He was started on IV fluids. He was found to be in ac bogdan renal failure. This was thought to be secondary to hypoperfusion of the kidneys from his low blo od pressure along with prerenal azotemia and dehydration. Patient works outside in the heat and had nontraumatic rhabdomyolysis as well with elevated CK level. Creatinine was initially 8.45. Patient was started on bicarb drip. His kidney function improved. Imaging studies did not show any obstruct ion. No urinary tract stones or uropathy. Patient was seen by Nephrology who agreed with treatment. His electrolytes were corrected. Overall, patient did well. He was able to tolerate his diet. He was ambulating well. He did not have any further nausea or vomiting. Patient's kidney function imp roved and was down to 1.34. He was then recommended to avoid working for the next few days and to ke ep hydrated. He will need to follow up with Nephrology as an outpatient. The patient was then clear ed for discharge and was sent home in a stable condition. He understands that he will need to discon tinue the lisinopril and HCTZ medication. He will be started on different medication for his blood p ressure, which is now in the 150 systolic. Medications: As per medication reconciliation list. Condition: Stable. Activity: As tolerated. No strenuous activity in the heat. Keep hydrated. Diet: Heart healthy. Discharge Instructions: Establish care with primary care physician in 2-3 days. Follow up with neph rologist, Dr. Urena in 1-2 weeks. Return to ER for worsening condition. Physical Examination: General: Awake, alert, oriented x3. No acute distress. CV: S1 and S2. No murmurs. Respiratory: Moving air well bilaterally. Abdomen: Soft, nontender, nondistended. Positive bowel sounds. Extremities: No clubbing, cyanosis, or edema. Neurologic: Nonfocal. Time Spent: Total time spent discharging the patient was 39 minutes. /SAAD Voice ID: [id number] Report ID: [id number]
== END 2019-03-31 12:01 | disposition home or self-care (01) | DRG 683 ==
LOC: ER 12:47 → ERHOLD 16:25 → 4TH 18:14
PROVIDERS: ADMIT Family Medicine; ATTEND Family Medicine
DX: N17.9 Acute kidney failure, unspecified (principal); M62.82 Rhabdomyolysis; E87.1 Hypo-osmolality and hyponatremia; E87.2 Acidosis; R79.89 Other specified abnormal findings of blood chemistry; E86.0 Dehydration; I95.9 Hypotension, unspecified; E83.41 Hypermagnesemia; Z86.19 Personal history of other infectious and parasitic diseases; I10 Essential (primary) hypertension; F17.210 Nicotine dependence, cigarettes, uncomplicated; R80.9 Proteinuria, unspecified
CPT/HCPCS: 36415; 71045; 74176; 76377; 80048; 80053; 80076; 81003; 82550; 82553; 83735; 83880; 84100; 84484; 85025; 85610; 87086; 87088; 93005; 94760; 96360; 96361; 99285; J1650; J3475; J7030

== ENCOUNTER 2022-04-04 07:26 | Emergency (ER) | payer OTHER ==
--- OUTSIDE RECORDS SUMMARY | 2022-04-04 07:29 | XMS REPORT | Continuity of Care Document ---
:1965 Author Organization [facility] t Address [address] [place] [address] Dr. Trinh [address] [place] [id number] Care Team Providers Name Role Phone Ana Castaneda Attending Clinician [phone] ANA SAWYER Attending Clinician Unavailable AYLIN AGUILA Attending Clinician Unavailable Matias Amaya MD Attending Clinician Vtc-Lab Attending Clinician Unavailable Aylin Aguila MD Attending Clinician Brannon Lynch MD Attending Clinician Payers Payer Name Policy Type Policy Number Effective Date Expiration Date S ource Problems Condition Condition Condition Status Onset Resolution Last Treating Co mments Source Name Details Category Date Date Treatment Clinician Date No known No known Disease Unive rs active active ity of problems problems [facility] Allergies, Adverse Reactions, Alerts Allergy Allergy Status Severity Reaction(s) Onset Inactive Treating Comm ents Source Name Type Date Date Clinician NO KNOWN Drug Active Univers ALLERGIE Class ity of S [facility] Social History Social Habit Start Date Stop Date Quantity Comments Source [facility] to SARS-CoV-2 Not sure [facility] [place] (event) [facility] Smoking Status Start Date Stop Date Source Unknown if ever smoked [facility] Medications Ordered Filled Start Stop Current Ordering Indication Dosage Frequency Signature Comments Components Source Medication Medication Date Date Medication? Clinician (SIG) Name Name imiquimod 5 Yes [id number] 1{packe Apply 1 Univers % cream 1-29 t} Each to ity of 00:00: [facility] [place] 00 daily. Medical Apply Branch small amount to each wart nightly as tolerated triamcinolo Yes Apply to Un [place] ne 0.5 % 8-27 area(s) 2 ity of ointment 15:49: (two) [place] 32 times Medical daily. Branch amLODIPine 2019-0 Yes 10mg Take 10 mg U nivers 10 mg 8-27 by mouth ity of tablet 15:49: daily. [place] [address] Indication Medical s: HTN, Branch replacing lisinopril -HCTZ triamcinolo 2019-0 Yes Apply to [place] 0.5 % 8-27 area(s) 2 ity of ointment 15:49: (two) [place] 32 times Medical daily. Branch triamcinolo 2019-0 Yes Apply to [place] ne 0.5 % 8-27 area(s) 2 ity of ointment 15:49: (two) [place] 32 times Medical daily. Branch amLODIPine 2019-0 Yes 10mg Take 10 mg U nivers 10 mg 8-27 by mouth ity of tablet 15:49: daily. [place] [address] Indication Medical s: HTN, Branch replacing lisinopril -HCTZ triamcinolo 2019-0 Yes Apply to [place] 0.5 % 8-27 area(s) 2 ity of ointment 15:49: (two) [place] [address] times Medical daily. Branch amLODIPine 2019-0 Yes 10mg Take 10 mg U nivers 10 mg 8-27 by mouth ity of tablet 15:49: daily. [place] [address] Indication Medical s: HTN, Branch replacing lisinopril -HCTZ triamcinolo 2019-0 Yes Apply to [place] 0.5 % 8-27 area(s) 2 ity of ointment 15:49: (two) [place] [address] times Medical daily. Branch amLODIPine 2019-0 Yes 10mg Take 10 mg U nivers 10 mg 8-27 by mouth ity of tablet 15:49: daily. [place] [address] Indication Medical s: HTN, Branch replacing lisinopril -HCTZ triamcinolo 2019-0 Yes Apply to [place] ne 0.5 % 8-27 area(s) 2 ity of ointment 15:49: (two) [place] [address] times Medical daily. Branch amLODIPine 2019-0 Yes 10mg Take 10 mg U nivers 10 mg 8-27 by mouth ity of tablet 15:49: daily. [place] [address] Indication Medical s: HTN, Branch replacing lisinopril -HCTZ triamcinolo 2019-0 Yes Apply to [place] ne 0.5 % 8-27 area(s) 2 ity of ointment 15:49: (two) [place] 32 times Medical daily. Branch amLODIPine 2019- Yes 10mg Take 10 mg U nivers 10 mg 8-27 by mouth ity of tablet 15:49: daily. [place] [address] Indication Medical s: HTN, Branch replacing lisinopril -HCTZ triamcinolo 2019- Yes Apply to [place] ne 0.5 % 8-27 area(s) 2 ity of ointment 15:49: (two) [place] 32 times Medical daily. Branch amLODIPine 2019- Yes 10mg Take 10 mg U nivers 10 mg 8-27 by mouth ity of tablet 15:49: daily. [place] [address] Indication Medical s: HTN, Branch replacing lisinopril -HCTZ triamcinolo Yes Apply to [place] ne 0.5 % 8-27 area(s) 2 ity of ointment 15:49: (two) [place] [address] times Medical daily. Branch amLODIPine Yes 10mg Take 10 mg U nivers 10 mg 8-27 by mouth ity of tablet 15:49: daily. [place] [address] Indication Medical s: HTN, Branch replacing lisinopril -HCTZ triamcinolo 2018- Yes Apply to Un [place] ne 0.5 % 8-27 area(s) 2 ity of ointment 15:49: (two) [place] 32 times Medical daily. Branch amLODIPine 2019- Yes 10mg Take 10 mg U nivers 10 mg 8-27 by mouth ity of tablet 15:49: daily. [place] [address] Indication Medical s: HTN, Branch replacing lisinopril -HCTZ triamcinolo Yes Apply to [place] ne 0.5 % 8-27 area(s) 2 ity of ointment 15:49: (two) [place] [address] times Medical daily. Branch amLODIPine 2019- Yes 10mg Take 10 mg U nivers 10 mg 8-27 by mouth ity of tablet 15:49: daily. [place] [address] Indication Medical s: HTN, Branch replacing lisinopril -HCTZ lisinopril- 2019- 2019- No 1{tbl} Take 1 U nivers hydrochloro 8-27 08-27 tablet by it y of thiazide 15:48: 00:00 mouth [place] 10-12.5 mg 02 :00 daily. Medical per tablet Branch LISINOPRIL 2018- No 10mg Take 10 mg Univers ORAL 04-15 by mouth ity of 15:46: 00:00 daily. [place] 59 :00 Medical Branch buPROPion 2018- No 150mg Take 150 Un [place] HCl, 04-15 mg by ity of smoking 15:46: 00:00 mouth [place] deter, 150 22 :00 daily. Medical mg Tb12 [place] Vital Signs Vital Name Observation Time Observation Value Comments Source Systolic blood 2019-04-15 15:16:00 145 mm[Hg] [facility] sity pressure [facility] Diastolic blood 2019-04-15 15:16:00 96 mm[Hg] [facility] rate 2019-04-15 15:16:00 97 /min [facility] Body temperature 2019-04-15 15:16:00 36.72 Stacey [facility] Respiratory rate 2019-04-15 15:16:00 20 /min [facility] Body height 2019-04-15 15:16:00 174.4 cm [facility] Body weight 2019-04-15 15:16:00 76.5 kg [facility] BMI 2019-04-15 15:16:00 25.15 kg/m2 [facility] Procedures This patient has no known procedures. Encounters Start End Encounter Admission Attending Care Care Encounter Source Date/Time Date/Time Type Type Clinicians Facility Department ID 2020-09-17 2020-09-17 [email or web address] [id number] [facility] 00:00:00 00:00:00 Ana GALVEZ [id number] ity of [place] [id number] [facility] [id number] [facility] AND [address] [facility] 2020-09-16 2020-09-16 Office Michelle [facility] [id number] Univers 09:26:48 12:12:01 Visit Ana GALVEZ [id number] [id number] [id number] [facility] AND [place] [address] [place] [facility] 2020-09-16 2020-09-16 Outpatient Mallory SAWYER [facility] [id number] Univers 09:45:00 09:45:00 ANA [id number] [facility] 2020-09-16 2020-09-16 Outpatient Mallory SAWYER [facility] [id number] Univers 09:45:00 09:45:00 ANA [facility] 2020-07-27 2020-07-27 Outpatient Mallory AGUILA [facility] [id number] Univers 10:30:00 10:30:00 AYLIN [id number] [facility] 2020-07-27 2020-07-27 Outpatient Mallory AGUILA [facility] [id number] Univers 10:30:00 10:30:[address] [facility] 2020-07-19 2020-07-19 Telephone DINO Amaya [id number] Univers 00:00:00 00:00:00 [facility] [id number] i ty of [id number] [facility] [id number] [facility] [address] [place] 2020-07-13 2020-07-13 Humane Agent Vtc-Lab [facility] [id number] Univers 11:18:07 11:33:07 Visit Aylin AguilaPEC [id number] ity of [place] [id number] [facility] [place] [id number] [facility] [address] [place] [facility] 2020-07-13 2020-07-13 Office Ayla [facility] [id number] Univers 10:09:51 11:16:14 Visit Aylin QUIGLEYPEC [id number] ity of [place] [id number] [facility] [place] [id number] [facility] [address] [place] [facility] 2020-07-13 2020-07-13 Outpatient Mallory AGUILA [facility] [id number] Univers 10:30:00 10:30:00 AYLIN [id number] francesy o f [facility] 2020-07-13 2020-07-13 Outpatient R AYLA, [facility] [id number] Univers 10:30:00 10:30:00 AYLIN [address] o f [facility] 2019-04-15 2019-04-15 Hospital MATILDE Lynch [id number] Univers 10:15:17 23:59:00 Encounter Brannon THOMPSON [id number] ity of [facility] [id number] [place] [id number] [address] 2019-04-15 2019-04-15 Case JIM Lynch [id number] Univers 00:00:00 00:00:00 Management Brannon YOUNG [id number] ity of [facility] [id number] [id number] [address] Results Test Description Test Time Test Comments Results Result Comments Source CBC W/AUTO DIFF WITH PLATELETS 2021-10-07 10:18:59 Test Item Value Reference Range Interpretation Comme nts WBC (test code = 1001) 10.0 K/UL 3.5-11.0 RBC (test code = 1002) 4.09 M/UL 4.50-6.10 L HEMOGLOBIN (test code = 1003) 14.6 G/DL 13.5-17.0 HEMATOCRIT (test code = 1004) 40.5 % 40.0-51.0 MCV (test code = 1005) 99.0 fL 80.0-99.0 MCH (test code = 1006) 35.7 PG 25.0-33.0 H MCHC (test code = 1007) 36.0 G/DL 31.0-36.0 RDW (test code = 1038) 13.0 % 11.5-15.0 NEUTROPHILS (test code = 60.6 % 1008) LYMPHOCYTES (test code = 28.7 % 1010) MONOCYTES (test code = 1011) 8.9 % EOSINOPHILS (test code = 1.0 % 1012) BASOPHILS (test code = 1013) 0.5 % IMMATURE GRANULOCYTES (test 0.3 % code = 1036) NUCLEATED RBCS (test code = 0.0 /100 WBC'S See_Comment [Automated message] The 1065) system which ge nerated this result transmit arabella reference range : 0.0. The reference range was not used to interpr et this result as ruben l/abnormal. PLATELET COUNT (test code = 182 K/UL [id number] 2859) ABSOLUTE NEUTROPHILS (test 6.09 K/UL 1.50-7.50 code = 1066) ABSOLUTE LYMPHOCYTES (test 2.88 K/UL 1.00-4.00 code = 1067) ABSOLUTE MONOCYTES (test code 0.89 K/UL 0.20-1.00 = 1068) ABSOLUTE EOSINOPHILS (test 0.10 K/UL 0.00-0.50 code = 1040) ABSOLUTE BASOPHILS (test code 0.05 K/UL 0.00-0.20 = 1069) ABS IMMATURE GRANULOCYTES 0.03 K/UL 0.00-0.10 (test code = 1020) ABS NUCLEATED RBCS (test code 0.00 K/UL 0.00-0.11 = 53025) LIPID [id number] 05:59:37 Test Item Value Reference Range Interpretation Comments CHOLESTEROL (test 221 MG/DL <200 H code = 2210) TRIGLYCERIDES (test 119 MG/DL <150 code = 2232) HDL CHOLESTEROL (test 68 MG/DL >39 code = 2220) CALC LDL CHOL (test 130 MG/DL <100 H NOTE: C ALCULATED LDL code = 2237) IS BASED ON EDWIN-STYLES METHOD WHICHINCLUDES ADJUSTABLE TRIGLYCERIDE:VL DL CHOLESTEROL RAT IO.THIS FACTOR VARIES B Y MEASURED TRIGLY CERIDE AND NON-HDLCHOL ESTEROL CONCENTRATIONS WITH INCREASED CALCU LATED LDL SEENIN HIGH ER TRIGLYCERIDE OR LOWER NON-HDL SPECIME NS. FOR MOREINFORMATION , SEE CLIENT ANNOUNCE MENT AT [email or web address] [email or web address] RATIO LDL/HDL 1.91 RATIO <3.55 (test code = 2238) COMPREHENSIVE METABOLIC [id number] 05:59:37 Test Item Value Reference Range Interpretation Comments GLUCOSE (test code = 76 MG/DL 70-99 2216) BUN (test code = 10 MG/DL 6-20 2207) CREATININE (test 0.78 MG/DL 0.80-1.40 L code = 2214) eGFR (2020 CKD-EPI) 106 >60 (test code = 69914) ML/MIN/1.73 CALC BUN/CREAT (test 13 RATIO 6-28 code = 223) SODIUM (test code = 142 MEQ/L 769-252 1465) POTASSIUM (test code 3.7 MEQ/L 3.5-5.4 = 2227) CHLORIDE (test code 104 MEQ/L 95-107 = 2214) CARBON DIOXIDE (test 21 MEQ/L 19-31 code = 220) CALCIUM (test code = 9.6 MG/DL 8.5-10.5 2208) PROTEIN, TOTAL (test 8.1 G/DL 6.1-8.3 code = 2228) ALBUMIN (test code = 4.9 G/DL 3.5-5.2 2200) CALC GLOBULIN (test 3.2 G/DL 1.9-3.7 code = 2239) CALC A/G RATIO (test 1.5 RATIO 1.0-2.6 code = 223) BILIRUBIN, TOTAL 0.2 MG/DL See_Comment [Automated message] (test code = 2206) The [employer] which generated this result transmitted ref erence range: <=1.2. T he reference range was not used to int erpret this result as normal/abnormal . ALKALINE PHOSPHATASE 82 U/L 40-121 (test code = 2203) AST (test code = 26 U/L 9-50 2217) ALT (test code = 23 U/L 5-50 UNLESS OTH ERWISE 2218) INDICATED, ALL TESTING PERFORM ED [facility], [place]. [address] [facility], [place] [id number] [place] [address] DIRECTOR: Ledy LUNDYIA NUMBER [id number] CAP ACCREDITATION N O. [id number]
[2022-04-04] MEDS ORDERED: HYDROCODONE/APAP 5/325 MG TAB ONE (08:07)
[2022-04-04] MEDS ORDERED: TDAP (DIPHTH,PERTUSS(ACELL),TET VAC) 0.5 ML VIAL IMVAC ONE (08:08)
--- NOTE | 2022-04-04 08:34 | RAD REPORT ---
EXAM DESCRIPTION: RAD - Foot Right 3 View - 04/04/2022 8:23 am CLINICAL HISTORY: PAINnot otherwise specified COMPARISON: No comparisonsNone. FINDINGS: The third toe distal phalanx shows comminuted fracture of the tuft. No air or foreign body in the soft tissues. The third toe IP joints are intact. There are no other fractures identified on this study. Small plantar spur is present. IMPRESSION: Comminuted fracture of the third toe distal phalanx tuft.
--- NOTE | 2022-04-04 09:00 | ER ---
Nurse's Notes [facility] Name: Ankit Reyes Jr Age: 56 yrs Sex: Male : 1965 Arrival Date: 04/04/2022 Time: 07:30 Bed 16 Private MD: Diagnosis: Displaced fracture of distal phalanx of right lesser toe(s), initial encounter for closed fracture;Laceration without foreign body of right lesser toe(s) without damage to nail, initial encounter Presentation: 04/04 07:36 Chief complaint: Patient states: log splitter fell on right foot Mar 26, foot seems to iw be getting more swollen. Coronavirus screen: At this time, the client does not indicate any symptoms associated with coronavirus-19. Ebola Screen: Patient negative for fever greater than or equal to 101.5 degrees Fahrenheit, and additional compatible Ebola Virus Disease symptoms Patient denies exposure to infectious person. Patient denies travel to an Ebola-affected area in the 21 days before illness onset. No symptoms or risks identified at this time. Initial Sepsis Screen: Does the patient meet any 2 criteria? No. Patient's initial sepsis screen is negative. Does the patient have a suspected source of infection? No. Patient's initial sepsis screen is negative. Risk Assessment: Do you want to hurt yourself or someone else? Patient reports no desire to harm self or others. Onset of symptoms was March 26, 2022. 07:36 Method Of Arrival: Ambulatory iw 07:38 Acuity: BRITTON 4 iw Triage Assessment: 08:00 General: Appears in no apparent distress. Behavior is calm, cooperative. Pain: jg9 Complains of pain in right first toe, right second toe, right third toe, right fourth toe, right fifth toe, Right first toenail, Right fifth toenail, Right second toenail, Right third toenail and Right fourth toenail Pain does not radiate. Pain currently is 8 out of 10 on a pain scale. Musculoskeletal: Swelling present in right first toe, right second toe, right third toe, right fourth toe, right fifth toe, Right first toenail, Right fifth toenail, Right second toenail, Right third toenail and Right fourth toenail. Injury Description: blunt force trauma-dropped a wood saw on his foot. Historical: - Allergies: 07:37 No Known Allergies; iw - PMHx: 07:37 Hyperlipidemia; Hypertension; iw - PSHx: 07:37 None; iw - Immunization history:: Client reports having NOT received the Covid vaccine. - Social history:: Smoking status: Patient reports the use of cigarette tobacco products. Screenin:00 Abuse screen: Denies threats or abuse. Denies injuries from another. Nutritional jg9 screening: No deficits noted. Tuberculosis screening: No symptoms or risk factors identified. Fall Risk None identified. Vital Signs: 07:38 BP 157 / 94; Pulse 85; Resp 16; Temp 97.9; Pulse Ox 98% on R/A; Weight 70.31 kg; Height iw 5 ft. 8 in. (172.72 cm); Pain 6/10; 08:30 BP 135 / 80; Pulse 81; Resp 17 S; Pulse Ox 97% ; Pain 2/10; jg9 09:00 BP 137 / 92; Pulse 82; Resp 17 S; Pulse Ox 98% on R/A; Pain 2/10; jg9 07:38 Body Mass Index 23.57 (70.31 kg, 172.72 cm) ED Course: 07:30 Patient arrived in ED. am2 07:38 Triage completed. iw 07:39 Bora Meyer DO is Attending Physician. ms3 07:54 Linda Briggs, RN is Primary Nurse. jg9 07:55 Arm band placed on. jg9 08:10 Patient has correct armband on for positive identification. Bed in low position. Call jg9 light in reach. Side rails up X 1. 08:25 Foot Right 3 View XRAY In Process Unspecified. EDMS 08:58 Jan Naik DPM is Referral Physician. ms3 08:59 No provider procedures requiring assistance completed. jg9 09:00 Patient did not have IV access during this emergency room visit. jg9 Administered Medications: 08:07 Drug: ADAcel 0.5 ml {Manager In Training: [employer] ([place] Self Representation Document Preparation). Exp: 05/27/2022. Lot #: [id number]. } {Note: per Meyer give Boostrix (unable to order) in place of this med.} Route: IM; Site: left deltoid; 08:56 Follow up: Response: (VIS) Vaccine information sheet provided today. Questions and/or jg9 concerns addressed. VIS edition date: Mar 25, 2021.; No adverse reaction 08:07 Drug: HYDROcodone-acetaminophen 5 mg-325 mg 1 tabs {Note: RASS-0, right foot pain jg9 01/27.} Route: PO; 08:56 Follow up: Response: No adverse reaction; Pain is decreased jg9 Medication: 08:59 Vaccine Information Statement (VIS) provided today. Questions and/or concerns jg9 addressed. VIS edition date: April 04, 2022. Outcome: 08:59 Condition: improved jg9 09:00 Discharge ordered by . ms3 09:18 Discharged to home ambulatory. jg9 09:18 Discharge instructions given to patient, Instructed on discharge instructions, follow up and referral plans. Demonstrated understanding of instructions, follow-up care, Prescriptions given X 2. 09:19 Patient left the ED. jg9 Signatures: Dispatcher [employer] EDMS Abby Arteaga, RN Stephanie Saavedra Marcus, DO DO ms3 Linda Briggs RN RN jg9
--- NOTE | 2022-04-04 09:01 | EDPHYS ---
Physician Documentation [facility] Name: Ankit Reyes Jr Age: 56 yrs Sex: Male : 1965 Arrival Date: 04/04/2022 Time: 07:30 Bed 16 Private MD: ED Physician Bora Meyer HPI: 04/04 07:58 This 56 yrs old Male presents to ER via Ambulatory with complaints of Foot Injury - ms3 swelling. 07:58 The patient presents with a laceration, pain, swelling. The complaints affect the right ms3 foot. Context: The problem was sustained at home, resulted from a heavy object falling, Log splitter. Onset: The symptoms/episode began/occurred 9 day(s) ago. Modifying factors: The symptoms are alleviated by nothing, the symptoms are aggravated by nothing. Associated signs and symptoms: The patient has no apparent associated signs or symptoms. Severity of symptoms: At their worst the symptoms were moderate, just prior to arrival, in the emergency department the symptoms are unchanged. Historical: - Allergies: 07:37 No Known Allergies; iw - PMHx: 07:37 Hyperlipidemia; Hypertension; iw - PSHx: 07:37 None; iw - Immunization history:: Client reports having NOT received the Covid vaccine. - Social history:: Smoking status: Patient reports the use of cigarette tobacco products. ROS: 07:58 Constitutional: Negative for fever, and chills. Neck: Negative for injury, pain, and ms3 swelling, Cardiovascular: Negative for chest pain, and palpitations. Respiratory: Negative for shortness of breath, cough, wheezing, and pleuritic chest pain, Abdomen/GI: Negative for abdominal pain, nausea, vomiting, diarrhea, and constipation. 07:58 Skin: Positive for laceration(s). 07:58 All other systems are negative. Exam: 07:58 Constitutional: This is a well developed, well nourished patient who is awake, alert, ms3 and in no acute distress. Head/Face: Normocephalic, atraumatic. Neck: Trachea midline, no cervical lymphadenopathy. Supple, full range of motion without nuchal rigidity, or vertebral point tenderness. No Meningismus. Chest/axilla: Normal chest wall appearance and motion. Nontender with no deformity. Cardiovascular: Regular rate and rhythm with a normal S1 and S2. No gallops, murmurs, or rubs. Normal PMI, no JVD. No pulse deficits. Respiratory: Lungs have equal breath sounds bilaterally, clear to auscultation and percussion. No rales, rhonchi or wheezes noted. No increased work of breathing, no retractions or nasal flaring. Abdomen/GI: Soft, non-tender, with normal bowel sounds. No distension or tympany. No guarding or rebound. No evidence of tenderness throughout. 07:58 Skin: Right toe lacerations with mild surrounding erythema. Vital Signs: 07:38 BP 157 / 94; Pulse 85; Resp 16; Temp 97.9; Pulse Ox 98% on R/A; Weight 70.31 kg; Height iw 5 ft. 8 in. (172.72 cm); Pain 6/10; 08:30 BP 135 / 80; Pulse 81; Resp 17 S; Pulse Ox 97% ; Pain 2/10; jg9 09:00 BP 137 / 92; Pulse 82; Resp 17 S; Pulse Ox 98% on R/A; Pain 2/10; jg9 07:38 Body Mass Index 23.57 (70.31 kg, 172.72 cm) iw MDM: 07:52 Patient medically screened. ms3 07:58 Differential diagnosis: fracture, laceration vs cellulitis. ms3 09:00 Data reviewed: vital signs, nurses notes, radiologic studies, and as a result, I will ms3 discharge patient. Counseling: I had a detailed discussion with the patient and/or guardian regarding: the historical points, exam findings, and any diagnostic results supporting the discharge/admit diagnosis, radiology results, the need for outpatient follow up, to return to the emergency department if symptoms worsen or persist or if there are any questions or concerns that arise at home. Special discussion: I discussed with the patient/guardian in detail that at this point there is no indication for admission to the hospital. It is understood, however, that if the symptoms persist or worsen the patient needs to return immediately for re-evaluation. 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 Lot #: [id number]. } {Note: per Meyer give Boostrix (unable to order) in place of this med.} Route: IM; Site: left deltoid; 08:56 Follow up: Response: (VIS) Vaccine information sheet provided today. Questions and/or jg9 concerns addressed. VIS edition date: Mar 25, 2021.; No adverse reaction 08:07 Drug: HYDROcodone-acetaminophen 5 mg-325 mg 1 tabs {Note: RASS-0, right foot pain jg9 01/27.} Route: PO; 08:56 Follow up: Response: No adverse reaction; Pain is decreased jg9 Disposition Summary: 04/04/22 09:00 Discharge Ordered Location: Home ms3 Condition: Stable ms3 Diagnosis - Displaced fracture of distal phalanx of right lesser toe(s), initial encounter for ms3 closed fracture - Laceration without foreign body of right lesser toe(s) without damage to nail, ms3 initial encounter Followup: ms3 - With: Jan Naik DPM - When: 2 - 3 days - Reason: Recheck today's complaints Discharge Instructions: - Discharge Summary Sheet ms3 - Laceration Care, Adult ms3 - Toe Fracture, [id number] ms3 Forms: - Medication Reconciliation Form ms3 - Thank You Letter ms3 - Antibiotic Education ms3 - Prescription Opioid Use ms3 Prescriptions: - Ibuprofen 600 mg Oral Tablet - take 1 tablet by ORAL route every 6 hours As needed take with food; 30 tablet; ms3 Refills: 0, Product Selection Permitted - Cephalexin 500 mg Oral Capsule - take 1 capsule by ORAL route every 6 hours for 7 days; 28 capsule; Refills: 0, ms3 Product Selection Permitted Signatures: Dispatcher [employer] Abby Garcia, Bora Earl RN, DO DO ms3 Linda Briggs RN RN jg9
[2022-04-04 09:42] VITALS: TEMP 97.9
[2022-04-04 09:51] VITALS: BP 137/92; O2SAT 98
== END 2022-04-04 09:19 | disposition home or self-care (01) ==
LOC: ER 07:26
DX: S92.531A Displaced fracture of distal phalanx of right lesser toe(s), initial encounter for closed fracture (principal); S91.114A Laceration without foreign body of right lesser toe(s) without damage to nail, initial encounter; F17.210 Nicotine dependence, cigarettes, uncomplicated; I10 Essential (primary) hypertension